=== PATIENT | male | born 1960 | race Caucasian/White ===

== ENCOUNTER 2017-09-19 09:07 | Inpatient (IN) | payer BC ==
[2017-09-19] MEDS: DIAZEPAM 5 MG TAB PO (09:00)
[2017-09-19] MEDS: CEFAZOLIN 1 GM/50 ML (PMX) 50 ML IVPB (09:00)
[~2017-09-19 09:07] MED LIST: SOD CHLORIDE 0.45% 1,000 ML IV
[2017-09-19 10:15] LABS: ALANINE AMINOTRANSFERASE 47 IU/L (13-69); ALBUMIN 4.3 g/dl (3.3-4.9); ALBUMIN/GLOBULIN RATIO 1.48; ALKALINE PHOSPHATASE 66 IU/L (42-121); ANION GAP 18 (8-16); ASPARTATE AMINO TRANSFERASE 22 IU/L (15-46); BILIRUBIN,INDIRECT 0.5 mg/dl (0-1.1); BILIRUBIN,TOTAL 0.5 mg/dl (0.2-1.3); CARBON DIOXIDE 23 mmol/L (21-31); CHLORIDE 105 mmol/L (97-110); CHOL/HDL RATIO 3.6 RATIO; CHOLESTEROL 127 mg/dl (100-200); GLUCOSE 294 mg/dl (70-220); HDL CHOLESTEROL 35 mg/dl (28-71); LDL CHOLESTEROL,CALCULATED 20 mg/dl; TOTAL PROTEIN 7.2 g/dl (6.1-8.1); TRIGLYCERIDES 362 mg/dl (0-149)
[2017-09-19 10:17] LABS: BLOOD UREA NITROGEN 20 mg/dl (7-20); CALCIUM 9.5 mg/dl (8.4-10.2); CREATININE 0.94 mg/dl (0.61-1.24); POTASSIUM 4.9 mmol/L (3.5-5.1); SODIUM 141 mmol/L (135-144)
[2017-09-19] MEDS ORDERED: FENTAnyl 50 MCG/ML VIAL IV ×3 (11:30)
[2017-09-19] MEDS ORDERED: ONDANSETRON 4 MG INJ IV (11:30)
[2017-09-19] MEDS ORDERED: HYDROmorphONE (0.2 MG/ML) 10ML SYG IV ×3 (11:30)
[2017-09-19 11:32] LABS: ADD MAN DIFF? NO; BASOPHIL # 0.1 10^3/ul (0.0-0.1); BASOPHILS % 0.6 % (0.0-2.0); EOSINOPHILS # 0.2 10^3/ul (0.0-0.5); HEMATOCRIT 39.4 % (42.0-52.0); HEMOGLOBIN 13.4 g/dl (14.0-18.0); LYMPHOCYTES # 1.9 10^3/ul (0.8-2.9); LYMPHOCYTES % 23.9 % (15.0-51.0); MEAN CORPUSCULAR HEMOGLOBIN 31.3 pg (29.0-33.0); MEAN CORPUSCULAR VOLUME 92.1 fl (82.0-101.0); MEAN PLATELET VOLUME 12.2 fl (7.4-10.4); MONOCYTE # 0.6 10^3/ul (0.3-0.9); MONOCYTES % 7.9 % (0.0-11.0); NEUTROPHIL # 5.2 10^3/ul (1.6-7.5); NEUTROPHILS % 65.1 % (39.0-77.0); PLATELET COUNT 140 10^3/UL (140-415); RED BLOOD COUNT 4.28 10^6/ul (4.70-6.10); RED CELL DISTRIBUTION WIDTH 12.4 % (11.5-14.5)
[2017-09-19] MEDS ORDERED: PROPOFOL 40 ML ×2 (12:02→12:56)
[2017-09-19 12:17] LABS: PROTIME 12.2 Sec (11.9-14.9)
[2017-09-19 12:19] LABS: PARTIAL THROMBOPLASTIN TIME 24.1 Sec (25.0-35.0)
[2017-09-19] MEDS ORDERED: LIDOCAINE 1% (MDV) 20 ML INJ (12:40)
[2017-09-19] MEDS ORDERED: IOHEXOL 350MG/ML 50 ML BTL (12:40)
[2017-09-19] MEDS ORDERED: GLUCOSE GEL 15 GRAM TUBE BUCCAL (15:30)
[2017-09-19] MEDS ORDERED: DEXTROSE 50% 50 ML SYRINGE IV ×2 (15:30)
[2017-09-19] MEDS ORDERED: GLUCAGON 1 MG INJ IM (15:30)
[2017-09-19] MEDS ORDERED: GLUCOSE GEL 15 GRAM TUBE PO ×2 (15:30)
[2017-09-19] MEDS: FUROSEMIDE 40 MG TAB PO (17:35)
[2017-09-19] MEDS: metFORMIN 500 MG TAB PO (17:35)
[2017-09-19] MEDS: INSULIN ASPART [NOVOLOG] 3 ML PEN SC ×2 (17:49→21:29)
[2017-09-19] MEDS ORDERED: INSULIN GLARGINE [LANtus] 3 ML PEN SC (20:00)
[2017-09-19] MEDS: ACETAMINOPHEN 325 MG TAB PO (21:17)
[2017-09-19] MEDS: ATORVASTATIN 40 MG TAB PO (21:18)
[2017-09-19] MEDS: TICAGRELOR 90 MG TABLET PO (21:24)
[2017-09-20] MEDS: COLESEVELAM 625 MG TAB PO ×3 (00:07→21:24)
[2017-09-20] MEDS: INSULIN GLARGINE [LANtus] 3 ML PEN SC ×2 (00:09→21:29)
[2017-09-20] MEDS ORDERED: ACCU-CHEK XX ×2 (02:00)
[2017-09-20] MEDS: ACCU-CHEK XX (02:00)
[2017-09-20] MEDS: morphine 2 MG INJ IV ×2 (02:48→13:46)
[2017-09-20] MEDS: ONDANSETRON 4 MG INJ IV ×2 (02:50→13:46)
[2017-09-20] MEDS: ACETAMINOPHEN 325 MG TAB PO ×2 (07:28→13:39)
[2017-09-20] MEDS: FUROSEMIDE 40 MG TAB PO ×2 (07:28→17:38)
[2017-09-20] MEDS: SPIRONOLACTONE 25 MG TAB PO (08:11)
[2017-09-20] MEDS: ASPIRIN (EC) 81 MG TAB PO (08:11)
[2017-09-20] MEDS: ISOSORBIDE MONONITRATE(SR)60 MG TAB PO (08:11)
[2017-09-20] MEDS: PANTOPRAZOLE (EC) 40 MG TAB PO (08:11)
[2017-09-20] MEDS: metFORMIN 500 MG TAB PO ×2 (08:11→17:29)
[2017-09-20] MEDS: LISINOPRIL 5 MG TAB PO (08:12)
[2017-09-20] MEDS: TICAGRELOR 90 MG TABLET PO ×2 (08:15→21:28)
[2017-09-20] MEDS: INSULIN ASPART [NOVOLOG] 3 ML PEN SC ×5 (08:16→21:30)
[2017-09-20 09:21] LABS: ADD MAN DIFF? NO
[2017-09-20 09:36] LABS: BASOPHIL # 0.1 10^3/ul (0.0-0.1); BASOPHILS % 0.6 % (0.0-2.0); EOSINOPHILS # 0.1 10^3/ul (0.0-0.5); EOSINOPHILS % 1.2 % (0.0-7.0); HEMATOCRIT 41.8 % (42.0-52.0); HEMOGLOBIN 14.1 g/dl (14.0-18.0); LYMPHOCYTES # 1.8 10^3/ul (0.8-2.9); LYMPHOCYTES % 17.7 % (15.0-51.0); MEAN CORPUSCULAR HEMOGLOBIN 31.4 pg (29.0-33.0); MEAN CORPUSCULAR HGB CONC 33.7 g/dl (32.0-37.0); MEAN CORPUSCULAR VOLUME 93.1 fl (82.0-101.0); MEAN PLATELET VOLUME 12.1 fl (7.4-10.4); MONOCYTE # 0.8 10^3/ul (0.3-0.9); MONOCYTES % 8.1 % (0.0-11.0); NEUTROPHIL # 7.3 10^3/ul (1.6-7.5); PLATELET COUNT 161 10^3/UL (140-415); RED BLOOD COUNT 4.49 10^6/ul (4.70-6.10); RED CELL DISTRIBUTION WIDTH 12.3 % (11.5-14.5)
[2017-09-20 09:36] LABS: WHITE BLOOD COUNT 10.1 10^3/ul (4.8-10.8)
[2017-09-20 09:48] LABS: ANION GAP 20 (8-16); BLOOD UREA NITROGEN 24 mg/dl (7-20); CALCIUM 9.5 mg/dl (8.4-10.2); CARBON DIOXIDE 23 mmol/L (21-31); CHLORIDE 96 mmol/L (97-110); CREATININE 1.08 mg/dl (0.61-1.24); GLUCOSE 339 mg/dl (70-220); POTASSIUM 5.1 mmol/L (3.5-5.1); SODIUM 134 mmol/L (135-144)
[2017-09-20] MEDS: LINAGLIPTIN 5 MG TABLET PO (13:39)
[2017-09-20 14:54] LABS: HEMOGLOBIN A1C 8.4 % (0-5.9)
[2017-09-20] MEDS ORDERED: INSULIN ASPART [NOVOLOG] 3 ML PEN SC (17:55)
[2017-09-20] MEDS: SOD CHLORIDE 0.9% 250 ML IV ×2 (18:13→19:36)
[2017-09-20 19:24] LABS: HEMATOCRIT 37.5 % (42.0-52.0); HEMOGLOBIN 13.1 g/dl (14.0-18.0)
[2017-09-20] MEDS: ATORVASTATIN 40 MG TAB PO (21:24)
[2017-09-21] MEDS: ACCU-CHEK XX (02:00)
[2017-09-21] MEDS: FUROSEMIDE 40 MG TAB PO ×2 (06:00→18:11)
[2017-09-21] MEDS: INSULIN ASPART [NOVOLOG] 3 ML PEN SC ×6 (08:11→18:14)
[2017-09-21] MEDS: EMPAGLIFLOZIN 10 MG TABLET PO (08:12)
[2017-09-21] MEDS: metFORMIN 500 MG TAB PO ×2 (08:25→18:10)
[2017-09-21] MEDS: ISOSORBIDE MONONITRATE(SR)60 MG TAB PO (08:55)
[2017-09-21] MEDS: ASPIRIN (EC) 81 MG TAB PO (08:55)
[2017-09-21] MEDS: PANTOPRAZOLE (EC) 40 MG TAB PO (08:56)
[2017-09-21] MEDS: COLESEVELAM 625 MG TAB PO (08:56)
[2017-09-21] MEDS: SPIRONOLACTONE 25 MG TAB PO (08:56)
[2017-09-21] MEDS: TICAGRELOR 90 MG TABLET PO (08:57)
[2017-09-21] MEDS: LINAGLIPTIN 5 MG TABLET PO (08:59)
[2017-09-21] MEDS: LISINOPRIL 5 MG TAB PO (09:16)
[2017-09-21] MEDS ORDERED: morphine LIQ (10 MG/5 ML) CUP PO (14:00)
[2017-09-21 16:58] LABS: ANION GAP 20 (8-16); BLOOD UREA NITROGEN 50 mg/dl (7-20); CALCIUM 9.5 mg/dl (8.4-10.2); CARBON DIOXIDE 21 mmol/L (21-31); CHLORIDE 99 mmol/L (97-110); CREATININE 3.28 mg/dl (0.61-1.24); GLUCOSE 100 mg/dl (70-220); POTASSIUM 4.3 mmol/L (3.5-5.1); SODIUM 136 mmol/L (135-144)
== END 2017-09-21 21:00 | disposition home or self-care (01) | DRG 227 ==
LOC: SDS 09:07 → REC 14:42 → TEL 17:06
PROC: 0JH608Z Insertion of Defibrillator Generator into Chest Subcutaneous Tissue and Fascia, Open Approach (ICD-10-PCS; principal; 2017-09-19 11:00)
PROC: 02HK3KZ Insertion of Defibrillator Lead into Right Ventricle, Percutaneous Approach (ICD-10-PCS; 2017-09-19 11:00)
DX: I25.5 Ischemic cardiomyopathy (principal); I69.954 Hemiplegia and hemiparesis following unspecified cerebrovascular disease affecting left non-dominant side; I50.42 Chronic combined systolic (congestive) and diastolic (congestive) heart failure; I25.10 Atherosclerotic heart disease of native coronary artery without angina pectoris; F41.9 Anxiety disorder, unspecified; I11.0 Hypertensive heart disease with heart failure; E11.65 Type 2 diabetes mellitus with hyperglycemia; E78.5 Hyperlipidemia, unspecified; Z95.1 Presence of aortocoronary bypass graft; Z79.4 Long term (current) use of insulin
CPT/HCPCS: 33249; 71045; 80048; 80053; 80061; 82962; 83036; 85014; 85018; 85025; 85610; 85730; 93005; 99217; G0378

== ENCOUNTER 2017-12-25 11:10 | Emergency (ER) | payer BC ==
[2017-12-25] MEDS: IBUPROFEN 600 MG TAB PO (12:10)
== END 2017-12-25 12:25 | disposition home or self-care (01) ==
LOC: FTE 11:10
DX: L60.0 Ingrowing nail (principal); I10 Essential (primary) hypertension; E11.9 Type 2 diabetes mellitus without complications; I25.10 Atherosclerotic heart disease of native coronary artery without angina pectoris; I50.9 Heart failure, unspecified; Z79.4 Long term (current) use of insulin; Z79.82 Long term (current) use of aspirin; Z95.1 Presence of aortocoronary bypass graft
CPT/HCPCS: 99282; Z7502

== ENCOUNTER 2018-09-14 07:13 | Day surgery (SDC) | payer BC ==
[2018-09-14 07:49] LABS: ADD MAN DIFF? NO
[2018-09-14 07:55] LABS: WHITE BLOOD COUNT 8.9 10^3/ul (4.8-10.8)
[2018-09-14 07:55] LABS: BASOPHIL # 0.1 10^3/ul (0.0-0.1); BASOPHILS % 0.8 % (0.0-2.0); EOSINOPHILS # 0.2 10^3/ul (0.0-0.5); HEMOGLOBIN 15.1 g/dl (14.0-18.0); LYMPHOCYTES # 2.9 10^3/ul (0.8-2.9); MEAN CORPUSCULAR HEMOGLOBIN 31.5 pg (29.0-33.0); MEAN CORPUSCULAR HGB CONC 33.6 g/dl (32.0-37.0); MEAN CORPUSCULAR VOLUME 93.8 fl (82.0-101.0); MEAN PLATELET VOLUME 11.4 fl (7.4-10.4); MONOCYTE # 0.7 10^3/ul (0.3-0.9); NEUTROPHIL # 4.9 10^3/ul (1.6-7.5); NEUTROPHILS % 55.6 % (39.0-77.0); PLATELET COUNT 175 10^3/UL (140-415); RED CELL DISTRIBUTION WIDTH 12.8 % (11.5-14.5)
[2018-09-14] MEDS ORDERED: SOD CHLORIDE 0.45% 1,000 ML IV (08:00)
[2018-09-14 08:08] LABS: CHOL/HDL RATIO 8.5 RATIO; HDL CHOLESTEROL 34 mg/dl (28-71)
[2018-09-14 08:08] LABS: CHOLESTEROL 289 mg/dl (100-200)
[2018-09-14 08:10] LABS: INR 0.83; PARTIAL THROMBOPLASTIN TIME 26.8 Sec (23.0-35.0); PROTIME 11.5 Sec (11.9-14.9); PT RATIO 0.9
[2018-09-14 08:17] LABS: B-TYPE NATRIURETIC PEPTIDE 205 PG/ML (0-125)
[2018-09-14 08:28] LABS: LDL CHOLESTEROL,CALCULATED 132 mg/dl; TRIGLYCERIDES 617 mg/dl (0-149)
[2018-09-14] MEDS: FAMOTIDINE 20 MG TAB PO (08:30)
[2018-09-14] MEDS: DIAZEPAM 5 MG TAB PO (08:30)
[2018-09-14] MEDS: DIPHENHYDRAMINE 50 MG CAP PO (08:30)
[2018-09-14] MEDS ORDERED: LIDOCAINE 1% (MDV) 20 ML INJ (08:53)
[2018-09-14] MEDS ORDERED: HEPARIN 1000 UNITS/ML 10 ML INJ (08:53)
[2018-09-14] MEDS ORDERED: VERAPAMIL 5 MG INJ (08:54)
[2018-09-14] MEDS ORDERED: FENTAnyl 50 MCG/ML VIAL (08:54)
[2018-09-14] MEDS ORDERED: NITROGLYCERIN (IC) 100 MCG/ML INJ (08:54)
[2018-09-14] MEDS ORDERED: MIDAZOLAM 1 MG/ML 2 ML INJ (08:54)
[2018-09-14 09:00] LABS: ANION GAP 12 (5-13); BLOOD UREA NITROGEN 18 mg/dl (7-20); CALCIUM 10.1 mg/dl (8.4-10.2); CARBON DIOXIDE 24 mmol/L (21-31); CHLORIDE 103 mmol/L (97-110); CREATININE 1.14 mg/dl (0.61-1.24); Estimated GFR > 60 mL/min (>60); GLUCOSE 176 mg/dl (70-220); POTASSIUM 4.4 mmol/L (3.5-5.1); SODIUM 139 mmol/L (135-144)
[2018-09-14] MEDS ORDERED: IODIXANOL LOCM 100 ML BTL ×2 (10:19→11:02)
[2018-09-14] MEDS ORDERED: BIVALIRUDIN 250MG /NS 50 ML 100 ML IVPB (10:29)
[2018-09-14] MEDS ORDERED: ASPIRIN 325 MG TAB (10:42)
[2018-09-14] MEDS ORDERED: TICAGRELOR 90 MG TABLET (10:42)
[2018-09-14] MEDS ORDERED: ONDANSETRON 4 MG INJ IV (11:00)
[2018-09-14] MEDS ORDERED: OXYCODONE/ACETAMINOPHEN (5/325) TAB PO (11:00)
[2018-09-14] MEDS ORDERED: ACETAMINOPHEN 325 MG TAB PO (11:00)
[2018-09-14] MEDS ORDERED: AL HYDROX/MG HYDROX/SIMETH 30 ML CUP PO (11:00)
[2018-09-14] MEDS ORDERED: ZOLPIDEM 5 MG TAB PO (11:00)
[2018-09-14] MEDS ORDERED: IODIXANOL LOCM 50 ML BTL (11:03)
[2018-09-14] MEDS: SOD CHLORIDE 0.9% 1,000 ML IV (12:09)
[2018-09-14] MEDS: morphine 2 MG INJ IV (12:48)
[2018-09-14] MEDS ORDERED: GLUCOSE GEL 15 GRAM TUBE PO ×2 (16:30)
[2018-09-14] MEDS ORDERED: NITROGLYCERIN (SL) 0.4 MG TAB SL (16:30)
[2018-09-14] MEDS ORDERED: DEXTROSE 50% 50 ML SYRINGE IV ×2 (16:30)
[2018-09-14] MEDS ORDERED: GLUCAGON 1 MG INJ IM (16:30)
[2018-09-14] MEDS ORDERED: GLUCOSE GEL 15 GRAM TUBE BUCCAL (16:30)
[2018-09-14] MEDS: FUROSEMIDE 40 MG TAB PO (17:20)
[2018-09-14] MEDS: INSULIN ASPART [NOVOLOG] 3 ML PEN SC ×2 (17:55→20:19)
[2018-09-14] MEDS: FERROUS SULFATE (EC) 325 MG TAB PO (20:06)
[2018-09-14] MEDS: GABAPENTIN 100 MG CAP PO (20:06)
[2018-09-14] MEDS: ATORVASTATIN 40 MG TAB PO (20:06)
[2018-09-14] MEDS: RANOLAZINE (SR) 500 MG TAB PO (20:06)
[2018-09-14] MEDS: TICAGRELOR 90 MG TABLET PO (20:13)
[2018-09-14] MEDS: INSULIN GLARGINE [LANTus] (100 UNITS/ML) SYG SC (20:47)
[2018-09-14] MEDS ORDERED: INSULIN GLARGINE [LANtus] 3 ML PEN SC (21:00)
[2018-09-14] MEDS ORDERED: TICAGRELOR 90 MG TABLET PO (21:00)
[2018-09-15] MEDS: FUROSEMIDE 40 MG TAB PO ×2 (05:27→17:19)
[2018-09-15] MEDS: PANTOPRAZOLE (EC) 40 MG TAB PO (05:28)
[2018-09-15] MEDS: INSULIN ASPART [NOVOLOG] 3 ML PEN SC ×3 (07:46→17:04)
[2018-09-15 08:17] LABS: ADD MAN DIFF? NO
[2018-09-15 08:24] LABS: WHITE BLOOD COUNT 9.8 10^3/ul (4.8-10.8)
[2018-09-15 08:24] LABS: BASOPHIL # 0.1 10^3/ul (0.0-0.1); BASOPHILS % 0.5 % (0.0-2.0); EOSINOPHILS # 0.1 10^3/ul (0.0-0.5); EOSINOPHILS % 1.4 % (0.0-7.0); HEMOGLOBIN 15.5 g/dl (14.0-18.0); LYMPHOCYTES # 1.9 10^3/ul (0.8-2.9); LYMPHOCYTES % 19.7 % (15.0-51.0); MEAN CORPUSCULAR HEMOGLOBIN 30.4 pg (29.0-33.0); MEAN CORPUSCULAR VOLUME 92.2 fl (82.0-101.0); MEAN PLATELET VOLUME 11.4 fl (7.4-10.4); MONOCYTE # 0.8 10^3/ul (0.3-0.9); MONOCYTES % 8.2 % (0.0-11.0); NEUTROPHIL # 6.8 10^3/ul (1.6-7.5); NEUTROPHILS % 69.5 % (39.0-77.0); PLATELET COUNT 179 10^3/UL (140-415); RED CELL DISTRIBUTION WIDTH 12.7 % (11.5-14.5)
[2018-09-15] MEDS: SPIRONOLACTONE 25 MG TAB PO (08:25)
[2018-09-15] MEDS: FERROUS SULFATE (EC) 325 MG TAB PO (08:25)
[2018-09-15] MEDS: ASPIRIN (EC) 81 MG TAB PO (08:25)
[2018-09-15] MEDS: GABAPENTIN 100 MG CAP PO ×2 (08:25→13:08)
[2018-09-15] MEDS: RANOLAZINE (SR) 500 MG TAB PO (08:25)
[2018-09-15] MEDS: ISOSORBIDE MONONITRATE(SR)60 MG TAB PO (08:26)
[2018-09-15] MEDS: TICAGRELOR 90 MG TABLET PO (08:27)
[2018-09-15 08:50] LABS: ANION GAP 18 (5-13); BLOOD UREA NITROGEN 23 mg/dl (7-20); CALCIUM 10.4 mg/dl (8.4-10.2); CARBON DIOXIDE 27 mmol/L (21-31); CHLORIDE 96 mmol/L (97-110); CREATINE KINASE 52 IU/L (23-200); CREATININE 1.48 mg/dl (0.61-1.24); Estimated GFR 49 mL/min (>60); GLUCOSE 239 mg/dl (70-220); POTASSIUM 4.6 mmol/L (3.5-5.1); SODIUM 141 mmol/L (135-144)
[2018-09-15 08:59] LABS: CK INDEX 0.4; CK-MB < 0.22 ng/ml (0.0-2.4); TROPONIN-I 0.072 ng/ml (0.000-0.120)
== END 2018-09-15 18:08 | disposition home or self-care (01) ==
LOC: SDS 07:13 → TEL 15:33
DX: I25.10 Atherosclerotic heart disease of native coronary artery without angina pectoris (principal); E11.9 Type 2 diabetes mellitus without complications; I10 Essential (primary) hypertension; I69.354 Hemiplegia and hemiparesis following cerebral infarction affecting left non-dominant side
CPT/HCPCS: 71045; 80048; 80061; 82550; 82553; 82962; 83880; 84484; 85025; 85610; 85730; 92928; 93005; 93459